=== PATIENT | female | born 1960 | race Hispanic/Latino ===

== ENCOUNTER 2017-01-19 10:26 | Emergency (ER) | payer OTHER ==
[2017-01-19 10:31] VITALS: TEMP 98
--- NOTE | 2017-01-19 11:01 | ED PDOC ---
Arrival/HPI - General Chief Complaint: Dizziness/Lightheaded Time Seen by Provider: 01/19/17 10:38 Historian: Patient - History of Present Illness Narrative History of Present Illness (Text): 01/19/17 10:42 Domonique Herron is a 56 year old female, whose past medical history includes high cholesterol, who presents to the emergency department complaining of spontaneous intermittent dizziness with associated nausea since 09:00 this morning. Patient notes that she had cold symptoms a week ago and a sore throat with pus in the back of her throat and an occasional cough for five days. Patient states that she took Augmentin for four days which caused multiple episodes of diarrhea. At present, patient feels congestion to her throat and in her right ear. Patient denies any fevers or any other complaints at this time. PMD: Dr. Derick Moreira Time/Duration: 1-3 hours Symptom Onset: Gradual Symptom Course: Unchanged, Intermittent Activities at Onset: Light Context: Home Past Medical History - Provider Review Nursing Documentation Reviewed: Yes - Cardiac Hx Cardiac Disorders: Yes - Psychiatric Hx Substance Use: No Family/Social History - Physician Review Nursing Documentation Reviewed: Yes Family/Social History: No Known Family HX Smoking Status: Never Smoked Hx Alcohol Use: No Hx Substance Use: No Allergies/Home Meds Allergies/Adverse Reactions: Allergies No Known Allergies Allergy (Verified 01/19/17 10:30) Home Medications: Home Meds Medication Instructions Recorded Confirmed Amoxicillin/Clavulanate [Augmentin 1 tab PO BID 01/19/17 01/19/17 875 MG-125 MG] Atorvastatin [Lipitor] 20 mg PO DAILY 01/19/17 01/19/17 Review of Systems - Review of Systems Constitutional: absent: Fevers Eyes: absent: Vision Changes ENT: Other (throat and right ear congestion). absent: Hearing Changes Respiratory: Cough Cardiovascular: absent: Chest Pain Gastrointestinal: absent: Abdominal Pain Genitourinary Female: absent: Dysuria Musculoskeletal: absent: Arthralgias Skin: absent: Rash Neurological: Dizziness Endocrine: absent: Diaphoresis Hemo/Lymphatic: absent: Adenopathy Psychiatric: absent: Anxiety Physical Exam Vital Signs Reviewed: Yes Vital Signs Temp Pulse Resp BP Pulse Ox 01/19/17 12:39 75 18 127/79 99 01/19/17 10:31 98 F 67 16 135/78 97 Temperature: Afebrile Blood Pressure: Normal Pulse: Regular Respiratory Rate: Normal Appearance: Positive for: Well-Appearing, Non-Toxic, Comfortable Pain Distress: None Mental Status: Positive for: Alert and Oriented X 3 - Systems Exam Head: Present: Atraumatic, Normocephalic Pupils: Present: PERRL Extroacular Muscles: Present: EOMI Conjunctiva: Present: Normal Mouth: Present: Moist Mucous Membranes Neck: Present: Normal Range of Motion Respiratory/Chest: Present: Clear to Auscultation, Good Air Exchange. No: Respiratory Distress, Accessory Muscle Use Cardiovascular: Present: Regular Rate and Rhythm, Normal S1, S2. No: Murmurs Abdomen: Present: Normal Bowel Sounds. No: Tenderness, Distention, Peritoneal Signs Back: Present: Normal Inspection Upper Extremity: Present: Normal Inspection. No: Cyanosis, Edema Lower Extremity: Present: Normal Inspection. No: Edema Neurological: Present: GCS=15, CN II-XII Intact, Speech Normal Skin: Present: Warm, Dry, Normal Color. No: Rashes Psychiatric: Present: Alert, Oriented x 3, Normal Insight, Normal Concentration Medical Decision Making ED Course and Treatment: 01/19/17 10:42 Impression: 56 year old female complaining of spontaneous intermittent dizziness with associated nausea since 09:00 this morning. Differential Diagnosis included but are not limited to: Benign positional vertigo vs. Anemia vs. Dehydration Plan: -- EKG -- Labs -- Reassess and disposition Progress Notes: EKG: Ordered, reviewed, and independently interpreted the EKG. Rate : 58 BPM Rhythm : Sinus Bradycardia Interpretation : 1st Degree AV Block Comparison : No previous EKG for comparison. 01/19/17 12:39 Patient asymptomatic after IVF. Was able to stand up with no symptoms. She feels better. She will finish course of antibiotics and follow up with her PMD. She was advised to return to the ED if symptoms worsen or any other concern. Rx Meclizine if needed. - Lab Interpretations Lab Results: 01/19/17 11:05 01/19/17 11:05 Lab Results 01/19/17 11:05: Sodium 141, Potassium 3.8, Chloride 105, Carbon Dioxide 26, Anion Gap 14, BUN 20, Creatinine 0.6, Est GFR ( Amer) > 60, Est GFR (Non- Af Amer) > 60, Random Glucose 117 H, Calcium 9.0 01/19/17 11:05: WBC 4.3 L, RBC 4.06, Hgb 12.1, Hct 35.9 L, MCV 88.4, MCH 29.8, MCHC 33.7, RDW 12.5, Plt Count 249, MPV 8.8, Gran % 63.1, Lymph % (Auto) 27.7, Dade % (Auto) 6.2 H, Eos % (Auto) 2.5, Baso % (Auto) 0.5, Gran # 2.73, Lymph # 1.2, Dade # 0.3, Eos # 0.1, Baso # 0.02 I have reviewed the lab results: Yes Interpretation: All labs normal - Medication Orders Current Medication Orders: Discontinued Medications Sodium Chloride (Sodium Chloride 0.9%) 1,000 mls @ 999 mls/hr IV .Q1H1M STA Stop: 01/19/17 12:51 Last Admin: 01/19/17 12:07 Dose: 999 mls/hr Ondansetron HCl (Zofran Inj) Confirm Administered Dose 4 mg .ROUTE .STK-MED ONE Stop: 01/19/17 11:06 Last Admin: 01/19/17 12:07 Dose: 4 mg - Scribe Statement The provider has reviewed the documentation as recorded by the Tavon Zuniga Provider Scribe Attestation: All medical record entries made by the Phoenixibprashanth were at my direction and personally dictated by me. I have reviewed the chart and agree that the record accurately reflects my personal performance of the history, physical exam, medical decision making, and the department course for this patient. I have also personally directed, reviewed, and agree with the discharge instructions and disposition. Disposition/Present on Arrival - Present on Arrival Any Indicators Present on Arrival: No History of DVT/PE: No History of Uncontrolled Diabetes: No Urinary Catheter: No History of Decub. Ulcer: No History Surgical Site Infection Following: None - Disposition Have Diagnosis and Disposition been Completed?: Yes Diagnosis: Dizziness Disposition: HOME/ ROUTINE Disposition Time: 12:39 Patient Plan: Discharge Condition: IMPROVED Discharge Instructions (ExitCare): Vertigo (ED) Additional Instructions: Ms Herron, thank you for letting us take care of you today. Your provider was Dr. Briscoe. You were treated for Vertigo. The emergency medical care you received today was directed at your acute symptoms. If you were prescribed any medication, please fill it and take as directed. It may take several days for your symptoms to resolve. Return to the Emergency Department if your symptoms worsen, do not improve, or if you have any other problems. Please contact your doctor or call one of the physicians/clinics you have been referred to that are listed on the Patient Visit Information form that is included in your discharge packet. Bring any paperwork you were given at discharge with you along with any medications you are taking to your follow up visit. Our treatment cannot replace ongoing medical care by a primary care provider (PCP) outside of the emergency department. Thank you for allowing the [facility] team to be part of your care today. If you had an X-Ray or CT scan: A Radiologist will review the ED reading if any change in treatment is needed we will contact you. If you had a blood, urine, or wound culture: It will take several days for the results, if any change in treatment is needed we will contact you. If you had an STI test: It will take 48 hours for the results. Please call after 1 week if you have not heard back. Prescriptions: Meclizine [Meclizine*] 25 mg PO Q6 PRN #30 tab PRN Reason: Dizziness Referrals: Derick Moreira MD [Primary Care Provider] - Follow up with primary Forms: [employer] (Turkmen)
[2017-01-19 11:43] LABS: BASO # 0.02 K/mm3 (0.0-2.0); BASO % 0.5 % (0.0-3.0); EOS # 0.1 (0.0-0.7); EOS % 2.5 % (1.5-5.0); GRAN # 2.73 (1.4-6.5); GRAN % 63.1 % (50.0-68.0); HEMOGLOBIN 12.1 g/dL (12.0-16.0); LYMPH # 1.2 (1.2-3.4); LYMPH % 27.7 % (22.0-35.0); MEAN CELL VOLUME 88.4 fl (80.0-105.0); MEAN CORPUSCULAR HEMOGLOBIN 29.8 pg (25.0-35.0); MEAN CORPUSCULAR HGB CONC 33.7 g/dl (31.0-37.0); MEAN PLATELET VOLUME 8.8 fl (7.0-11.0); MONO # 0.3 (0.1-0.6); MONO % 6.2 % (1.0-6.0); PLATELET COUNT 249 10^3/uL (120.0-450.0); RBC 4.06 10^6/uL (3.5-6.1); RED CELL DISTRIBUTION WIDTH 12.5 % (11.5-14.5); WHITE BLOOD COUNT 4.3 10^3/ul (4.5-11.0)
[2017-01-19] MEDS ORDERED: Sodium Chloride 0.9% 1,000 ML IV STA (11:51)
[2017-01-19 11:52] LABS: BLOOD UREA NITROGEN 20 mg/dL (7-21); GFR AFRICAN-AMERICAN > 60; GFR NON-AFRICAN AMERICAN > 60
[2017-01-19 12:40] VITALS: BP 127/79; PULSE 75; RESP 18; O2SAT 99
--- NOTE | 2017-01-20 00:47 | CARD ---
APPROVED REPORT EKG Measurement Heart [id number] <Conclusion> Sinus bradycardia with 1st degree AV block Otherwise normal ECG
== END 2017-01-19 12:39 | disposition home or self-care (01) ==
LOC: ED 10:26
DX: R42 Dizziness and giddiness (principal); E78.00 Pure hypercholesterolemia, unspecified
CPT/HCPCS: 80048; 82948; 85025; 93005; 99285; J2405; J7040